=== PATIENT | female | born 1960 | race Caucasian/White ===

== ENCOUNTER 2023-04-17 14:00 | Emergency (ER) | payer MEDICARE, SELFPAY ==
--- NOTE | ~2023-04-17 | CT_ITS ---
EXAMINATION: CT HEAD WITHOUT CONTRAST CLINICAL INFORMATION: Headache. COMPARISON: None. TECHNIQUE: Contiguous axial imaging was performed from the skullbase to vertex without intravenous administration of contrast. This CT examination was performed using dose optimization techniques as appropriate, variously including the following: *Automated exposure control *Adjustment of mA and/or kV according to patient size (this includes techniques or standardized protocols for targeted exams where dose is matched to indication/reason for exam; i.e. extremities or head) *Use of iterative reconstruction technique DLP: 511 mGy-cm. FINDINGS: There is no evidence of acute intracranial hemorrhage or territorial infarction. No abnormal mass effect or midline shift is seen. Estes to white matter differentiation is well preserved. No extra-axial fluid collections are identified. Mild to moderate generalized brain parenchymal volume loss noted with chronic white matter microangiopathy. The osseous structures and soft tissues are normal. The mastoid air cells are well aerated. There is dependent mucosal thickening posteriorly in the right sphenoid sinus. A small 0.8 cm lobulated soft tissue focus also dependently in the right sphenoid sinus is nonspecific, reflecting mucosal thickening, a small retention cyst, or possibly a small mycetoma. CT/CT head/brain wo IV con IMPRESSION: No acute intracranial hemorrhage or territorial infarction. [id number] chronic white matter microangiopathy and generalized brain parenchymal volume loss. Mild mucosal thickening in the dependent right sphenoid sinus.
[2023-04-17 14:48] VITALS: BP 102/70; PULSE 80; RESP 14; TEMP 36.2; O2SAT 100; BMI 19.8
[2023-04-17 15:47] LABS: Appearance Urine Clear; Color Urine Yellow; Glucose Urine UA Negative (Negative); Leukocyte Esterase Urine Negative (Negative); Nitrite Urine Negative (Negative); Specific Gravity - Urine <= 1.005 (1.005-1.025); Urine Blood Negative (Negative); Urine Ketones Trace mg/dL (Negative); Urine Protein Negative (Neg-Trace)
--- NOTE | 2023-04-17 15:52 | ED_ITS ---
HPI - General Adult General Chief complaint: Psychiatric Symptoms Stated complaint: crisis si Time Seen by Provider: 04/17/23 14:18 History of Present Illness HPI narrative: Patient is a 63-year-old female presents today with writing a note to family stating that she loves them, she will miss her family and the fracture of her friends. Patient has been having hallucinations thinking that the daughter is going to evict her from her house. Patient was sent to the ED for further evaluation. He denies any recreational drug use. No fever no chills. No coughing or congestion or upper respiratory symptoms. No diaphoresis. Related Data Home Medications Medication Instructions Recorded Confirmed No Known Home Meds 04/17/23 04/17/23 Allergies Allergy/AdvReac Type Severity Reaction Status Date / Time Sulfa (Sulfonamide Allergy Intermediate Rash Verified 04/17/23 15:30 Antibiotics) Review of Systems 2 Review of Systems: No fever no chills no chest pain Yes all other systems are reviewed and are negative [facility] Past Medical History Attestation statement: The following information was validated with the patient. Source: unable to obtain Social History Social History Alcohol intake: current Alcohol intake frequency: a few times a week Alcohol type: wine and hard liquor Smoked in Last 30 Days: No Use of substances other than those prescribed or required for medical reasons: No Advance Directives: No Advance Directives Information Provided: No Physical Exam ED Vital Signs: Vital Signs - 24 hr 04/17/23 14:48 Temperature 97.2 F Pulse Rate 80 Respiratory Rate 14 Blood Pressure 102/70 Pulse Oximetry 100 Oxygen Delivery Method Room Air BMI result Body Mass Index 19.8 Appearance: Alert. Oriented X3. No acute distress. Eyes: Pupils equal, round and reactive to light. ENT: Pharynx normal. Neck: Normal inspection. Neck supple. No lymph nodes noted. No crepitus CVS: Normal heart rate and rhythm. Pulses normal. Normal S1 and S2 Respiratory: No respiratory distress. Breath sounds normal. No Wheezing. No rales Abdomen: Soft and nontender. No rigidity. No distention. good BS x4 Skin: Skin warm and dry. Normal skin color. Normal skin turgor. Extremities: No lower extremity edema. Neurovascular intact to all extremities. No Lacerations. No Rash Neuro: Oriented X 3. No motor deficit. No sensory deficit. Moving all extermities. No slurred speech Medical Decision Making Medical Decision Making MDM Narrative: I reviewed patient's CT scan of the head which was grossly negative for any acute evidence of bleeding. Patient's TSH is normal there is no evidence for hypo or hyperthyroid patient's electrolytes were normal. Tox screen was negative no evidence for substance abuse. Care team evaluated the patient. Novi patient safe to be evaluated on an outpatient basis. Family feel comfortable. Patient is in stable condition. Will discharge patient home Differential Diagnosis Differential Diagnoses: The differential diagnosis associated with the presentation includes Hypothyroid, intracranial bleed, intracranial mass, electrolyte disturbance, hypoglycemia Admission/Observation Consideration of admission/observation: Escalation of care including admission/observation considered Consult Healthcare Provider Management of the patient was discussed with: Security Representative (Care team) Lab Data [facility] Lab Attestation statement: I reviewed the patient's lab results. 04/17/23 16:10 04/17/23 16:10 Labs: Lab Results 04/17/23 04/17/23 Range/Units 15:40 16:10 WBC 6.6 (4.8-10.8) X10*3/uL RBC 4.19 L (4.20-5.50) X10*6/uL Hgb 12.9 (12.0-16.0) g/dl Hct 37.8 (37.0-47.0) % MCV 90.2 (80.0-98.0) fL MCH 30.8 (27.0-33.0) pg MCHC 34.1 (31.0-35.0) g/dl RDW 12.7 (11.0-16.0) % Plt Count 299 (160-400) X10*3/uL MPV 10.0 (9.4-12.3) fL Immature Gran % (Auto) 0.3 (0.0-0.4) % Neut % (Auto) 64.5 (45-73) % Lymph % (Auto) 24.3 (20-40) % [place] % (Auto) 9.2 (2-11) % Eos % (Auto) 0.6 (0-4) % Baso % (Auto) 1.1 (0-2) % Lymph # (Auto) 1.6 (1.2-4.9) X10*3/uL [place] # (Auto) 0.6 (0.1-1.2) X10*3/uL Eos # (Auto) 0.0 (0.0-0.4) X10*3/uL Baso # (Auto) 0.1 (0.0-0.2) X10*3/uL Abs Immat Gran (auto) 0.02 (0.00-0.03) X10*3/uL Absolute Neuts (auto) 4.3 (2.0-8.3) x10*3/uL Absolute Nucleated RBC 0.000 (0.0-0.012) X10*3/uL Nucleated RBC % (auto) 0.0 (0.0-0.2) /100WBC Sodium 140 (135-145) mmol/L Potassium 3.9 (3.3-5.1) mmol/L Chloride 104 (96-108) mmol/L Carbon Dioxide 26 (22-29) mmol/L Anion Gap 14 (12-20) BUN 8 L (9-16) mg/dL Creatinine 0.78 (0.5-1.4) mg/dL Estim Creat Clear Calc 56.9 Estimated GFR > 60 Random Glucose 100 (60-115) mg/dL Calcium 9.7 (8.4-10.2) mg/dL Total Bilirubin 0.5 (0.0-1.0) mg/dL AST 22 (5-31) U/L ALT 15 (0-31) U/L Alkaline Phosphatase 84 (39-117) U/L Total Protein 7.4 (6.5-8.0) g/dL Albumin 4.5 (3.5-5.0) g/dL TSH 0.74 (0.32-4.0) uIU/mL Urine Color Yellow Urine Appearance Clear Urine pH 6.0 (5.0-9.0) Ur Specific [place] <= 1.005 (1.005-1.025) Urine Protein Negative (Neg-Trace) mg/dL Urine Glucose (UA) Negative (Negative) mg/dL Urine Ketones Trace (Negative) mg/dL Urine Blood Negative (Negative) Urine Nitrite Negative (Negative) Ur Leukocyte Esterase Negative (Negative) Urine Opiates Screen Not Detected (Not Detect) Urine Fentanyl Screen Not Detected (Not Detect) Ur Barbiturates Screen Not Detected (Not Detect) Ur Phencyclidine Scrn Not Detected (Not Detect) Ur Amphetamines Screen Not Detected (Not Detect) U Benzodiazepines Scrn Not Detected (Not Detect) Urine Cocaine Screen Not Detected (Not Detect) U Marijuana (THC) Screen Not Detected (Not Detect) Independent Interpretation I performed an independent interpretation of an: CT Scan (CT head was grossly negative for any acute evidence of bleeding) Radiology Impression Discussion of test interpretation with radiology: I have reviewed the radiologist's reading. Independent Historian Clinical information obtained from an independent historian. History obtained from or confirmed by: Spouse Patient's spouse Social Determinants Patient?s care significantly limited by Social Determinants of Health including: Other Social Determinant of Health Discharge Plan Discharge Clinical Impression: Depression Patient Disposition: Home, Self-Care Instructions: Depression (ED) Prescriptions: No Action No Known Home Meds Referrals: Fidel Stephenson MD [Primary Care Provider] - (Please follow-up as per care team) Interventions: Haines-Suicide Risk Severity Scale Last Done: 04/17/23 18:19
[2023-04-17 15:54] LABS: Amphetamine Screen Urine Not Detected (Not Detect); Barbiturates, Urine Not Detected (Not Detect); Benzodiazepines Screen Urine Not Detected (Not Detect); Cannabinoid Screen Urine Not Detected (Not Detect); Cocaine Screen Urine Not Detected (Not Detect); Fentanyl, urine Not Detected (Not Detect); Opiate Screen Urine Not Detected (Not Detect); Phencyclidine Screen Urine Not Detected (Not Detect)
[2023-04-17 16:17] LABS: MANUAL DIFF FLAG NO
[2023-04-17 16:18] LABS: Basophils Absolute Auto 0.1 X10*3/uL (0.0-0.2); Basophils Percent Auto 1.1 % (0-2); Eosinophils Percent Auto 0.6 % (0-4); Hematocrit 37.8 % (37.0-47.0); Hemoglobin 12.9 g/dl (12.0-16.0); Imm Gran Abs Auto 0.02 X10*3/uL (0.00-0.03); Imm Gran Pct Auto 0.3 % (0.0-0.4); Lymphocytes Absolute Auto 1.6 X10*3/uL (1.2-4.9); Lymphocytes Percent Auto 24.3 % (20-40); Mean Corpuscular HGB Conc 34.1 g/dl (31.0-35.0); Mean Corpuscular Hemoglobin 30.8 pg (27.0-33.0); Mean Corpuscular Volume 90.2 fL (80.0-98.0); Monocytes Absolute Auto 0.6 X10*3/uL (0.1-1.2); Monocytes Percent Auto 9.2 % (2-11); Neutrophils Absolute Auto 4.3 x10*3/uL (2.0-8.3); Neutrophils Percent Auto 64.5 % (45-73); Platelet Count 299 X10*3/uL (160-400); Red Blood Count 4.19 X10*6/uL (4.20-5.50); Red Cell Distribution Width 12.7 % (11.0-16.0); White Blood Count 6.6 X10*3/uL (4.8-10.8)
[2023-04-17 16:31] LABS: Alanine Aminotransferase 15 U/L (0-31); Albumin Level 4.5 g/dL (3.5-5.0); Alkaline Phosphatase 84 U/L (39-117); Anion Gap 14 (12-20); Aspartate Amino Transferase 22 U/L (5-31); Bilirubin Total 0.5 mg/dL (0.0-1.0); Blood Urea Nitrogen 8 mg/dL (9-16); Calcium 9.7 mg/dL (8.4-10.2); Carbon Dioxide 26 mmol/L (22-29); Chloride 104 mmol/L (96-108); Creatinine Clr Calc Pharmacy 56.9; Estimated Glomerular Filt Rate > 60; Glucose Random 100 mg/dL (60-115); Potassium 3.9 mmol/L (3.3-5.1); Sodium 140 mmol/L (135-145); Total Protein 7.4 g/dL (6.5-8.0)
[2023-04-17 16:52] LABS: TSH reflex Free T4 0.74 uIU/mL (0.32-4.0)
--- NOTE | 2023-04-18 20:00 | MHC.CARE ---
RAD team completed referral to [facility]. RAD team to follow up tomorrow, 04/19/23.
--- NOTE | 2023-04-19 10:08 | MHC.CARE ---
Rad Team spoke with Maliha Cantor at [facility] who stated she will be reaching out to Ashleigh today to schedule a start date.
== END 2023-04-17 19:28 | disposition home or self-care (01) ==
PROVIDERS: Emergency Provider Emergency Medicine Emergency Medical Services; PCP Internal Medicine
DX: F32.A Depression, unspecified (principal); R51.9 Headache, unspecified
CPT/HCPCS: 36415; 70450; 80053; 80307; 81003; 84443; 85025; 99284; S9485

== ENCOUNTER → 2023-06-16 11:30 | Outpatient (BNV) | payer MEDICARE, OTHER, SELFPAY | PROVIDERS: Visit Provider Psychiatry & Neurology Psychiatry | DX: F39 Unspecified mood [affective] disorder (principal); F03.90 Unspecified dementia, unspecified severity, without behavioral disturbance, psychotic disturbance, mood disturbance, and anxiety; F41.8 Other specified anxiety disorders | CPT/HCPCS: 90792; 99213; 99214 ==

== ENCOUNTER 2023-06-21 09:45 | Outpatient (RCR) | payer MEDICARE, SELFPAY ==
[2023-06-08 10:41] VITALS: BMI 20.2
[2023-06-08 10:42] VITALS: BP 111/70; PULSE 78; TEMP 37.6
--- NOTE | 2023-06-08 11:22 | PC.ADMIT ---
Patient is a 63 year old female who was referred to [facility] by the crisis team . Per Integrative assessment patient presented to the ER on 04/17/23 advised by her PCP d/t increased depression, anxiety, and memory loss. 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 According to her she was making statements that did not make sense lately. She reportedly wrote a note saying things like she does not want to feel like she is in a nursing home anymore (in her mind). Having nightmares that she believes are real and being fixed on the idea that her daughter is going to natasha her which is not true. Patient lives with her only. Patient has a long history of depression and anxiety. Patient reportedly recently retired however when asked patient when she retired she is unable to state. Patient is alert and oriented x3. She does not remember why she is at [facility] and has not recollection why she went to the ED. She reports short term memory issues and has history of TBI. She stated her intermediate memory is much better. Limited fund of information. Patient denied SI stated her father of suicide and would never do that to her adult children. She was given a copy of her safety plan if needed. Medications reconciled with patient. She reports taking medications as prescribed.
--- NOTE | 2023-06-08 15:24 | HO.PHP ---
Client's case has been opened and reviewed in treatment team.
--- NOTE | 2023-06-08 22:26 | P.HPPSP_ITS ---
HPI Date of Service: 06/08/23 Chief Complaint: depression,anxiety Sources of Information: patient interviewed, chart reviewed and crisis/core team assessment reviewed HPI Narrative: Patient is a 63 yo female with history of traumatic brain injury with memory loss She reports being concussed and as a result lives with short term memory loss at baseline. She was unable to identify the reason she was referred to PHP but shared some current stressors relating to family dynamics. Specifically she reports a complicated relationship with her daughter who recently came out as keane. She also relays some paranoia around her mother being evil and trying to sabotage her relationship with her daughter. She is trying to come between us and use her against me . Aside from progesteron, she is not on any medication and has no prior psychaitric treatment history. Past Psychiatric History: No IPLOC, PHP or detox admissions No SA or SIBs No MH treaters No psychiatric medications or med trials Regular check ups with PCP and is reportedly in good health aside from memory issues related to TBI [facility] Medical History (Updated 06/20/23 @ 11:46 by Linda Meraz MD) Borderline hyperlipidemia TBI (traumatic brain injury) Surgical History (Updated 06/08/23 @ 10:39 by Parris Wylie RN) H/O lumpectomy Hx of appendectomy Social History: , lives at [facility] Has 2 adult children Substance History: Denies any hx of alcohol or illicit drug use Trauma History: Denies Diagnostics Vital Signs (24Hr): Vital Signs - 24 hr 06/08/23 10:42 Temperature 99.6 F Pulse Rate 78 Blood Pressure 111/70 BMI result Body Mass Index 20.2 Meds/Allergies Meds Home Medications ?Medication ?Instructions ?Recorded ?Confirmed ?Type progesterone micronized 100 mg 100 mg PO DAILY 06/08/23 06/08/23 History capsule Allergies Allergies Allergy/AdvReac Type Severity Reaction Status Date / Time Sulfa (Sulfonamide Allergy Intermediate Rash Verified 04/17/23 15:30 Antibiotics) Mental Status Exam Mental Status Exam Narrative: Alert, oriented, in no acute distress. Calm, cooperative, engaged. No psychomotor agitation or neurovegetative retardation. Eye contact maintained. Mood okay angry about situation with mother., affect anxious,full range, reactive, mood congruent. Speech normal. Thought process linear, coherent, logical. Thought content related to stressors, TBI-related challenges, denies any helplessness, hopelessness or SI.? No aggressive ideation or HI. No paranoia or delusional content elicited. No evidence of psychosis. Cognition impairment noted in working memory, short term memory and episodic jail memory impairment. Insight fair/limited and judgment fair but adequate. Assessment & Plan Assessment & Plan (1) Mood disorder: Status: Acute Code(s): F39 - Unspecified mood [affective] disorder Assessment and Plan: with behavioral disturbance (2) Major neurocognitive disorder: Status: Acute Code(s): F03.90 - Unspecified dementia, unspecified severity, without behavioral disturbance, psychotic disturbance, mood disturbance, and anxiety Assessment and Plan: Major neurocognitive disorder due to traumatic brain injury (3) Other specified anxiety disorders: Status: Acute Code(s): F41.8 - Other specified anxiety disorders Plan Admit to [facility] VS reviewed: abrefile; BP 111/70; 78 bpm Continue regular medications for now Will plan to assess for MCI/ MoCA once patient has settled in Routine lab work ordered UDS, EKG as indicated MassPat reviewed Continue to monitor as per protocol Patient educated on: diagnosis and medication risk/benefits Informed Consent: understands Reason for continued partial hosp. stay Substantial Risk for: med/psych decompensation Certification I certify that partial hospital treatment is medically necessary due to the symptoms and problems resulting from the patient's mental illness and the failure to treat the patient at the partial hospital level of care would likely result in the patient requiring inpatient psychiatric care which could not be prevented at a less intensive level of care. Time Spent With Patient Time: Total time managing care of this patient today _60___ minutes.
--- NOTE | 2023-06-16 21:57 | HO.PHPPROGNO ---
Subjective Subjective Date of Service: 06/16/23 Reason For Visit: depression,anxiety Interim History: Patient seen for follow-up. Presents as bright, relaxed. No longer distressed as she was during admission last week. She reports she is feeling okay both physically and mentally. I'm physically fit, I walk everyday and I eat well, I get good sleep . Says she also takes good care of her health because it also helps her care for her TBI. She notes she typically is not a medication person and prefers eating well and exercise to manage anxiety or depression. She again shares that she takes only vitamin D, ashwagandha, and progesterone. She reports her mood as I feel good right now . She can not recall when she last felt depressed. She admits she usually can not hold onto that kind of information. 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 She shares details about her and children, prefacing this with I probably told you this already . She admits she can not recall any of our conversation last week nor actually meeting with me, however she says she does recognize my face and the artwork that is hanging on the wall in my office, which she takes as cues that we have met before . She has difficulty articulating what has been helpful about being in the program, other than I feel that it is a supportive place and says it was probably a good idea I came in, because I feel good . She does not recall if there were any events that brought her into PHP. She says she does not recall being upset last week. She also does not recall telling me about her complicated relationship with her mother or that her daughter came out as keane last week, but says that makes sense that she would have shared those things with me, acknowledging that both those things are true, and says she is in a different place...of acceptance with her daughter. I probably had a hard time because I wasn't expecting it . She denies any hopelessness or SI. She denies any feelings of anger or irritability or HI. She denies any AH or VH. She says she can not recall having had any of these issues. She says she used to have issues with depression many many years ago from prior to her head injury. She says she probably has some depressive feelings sometimes, but suspects she moves on more quickly now because I don't really remember much day to day, I probably just move on from it . She currently feels she is at her baseline, and says she is generally a [id number]-[id number] person most of the time . She denies any helplessness, hopelessness or SI. She expresses much gratitude to her who is her rock and is very supportive and patient . She relays being habituated to checking her watch for the time and date (she was unable to even guess at the day/date/month or year) without looking at her watch. She also is in the habit of checking her phone where she keeps a daily schedule that helps prompt her to where she is or what she is doing. She was agreeable to taking a cognitive test today (MoCA) since she feels she is at her baseline, and I thought it might be helpful to have a baseline score, for comparisons in the future, which she thought was reasonable. MoCA score today 18/30 without checking watch (when allowed to check watch would have scored 22/30) Visuospatial/executive - 3/5 (unable to follow pattern on dot connection or draw a cube) Naming - 3/3 Memory - (registered 5 items after 3 trials) Attention - 2/2, 1/1, 1/3 (unable to subtract 7s beyond 93) Language - 1/2 (on repeat sentance) , 1/1 (on fluency) Abstraction - 2/2 Delayed Recall - 4/5 (recalled 3/5 and 1 with category cue) Orientation - 0/6 (was unable to recall day/date/month or year (which prompted her to ask if she could check her watch to answer the question), city as in [place]...[place], maybe? and place as a medical facility . Medication Compliance: Yes Side effects from medications: No Attending Groups: Yes Review of Systems Acute medical concerns: No Review of Systems Review of Systems Yes all other systems are reviewed and are negative Mental Status Exam Mental Status Exam Narrative: Alert, oriented, in no acute distress. Calm, cooperative, engaged. No psychomotor agitation or neurovegetative retardation. Eye contact maintained. Mood good, affect anxious, bright, mood congruent. Speech normal. Thought process linear, coherent, logical. Thought content related to stressors, TBI-related challenges, denies any helplessness, hopelessness or SI.? No aggressive ideation or HI. No paranoia or delusional content elicited. No evidence of psychosis. Cognition impairment noted in working memory, short term memory and episodic fdc memory impairment. Insight fair/limited and judgment fair but adequate. Diagnostics Vital Signs (24Hr): BMI result Body Mass Index 20.2 Assessment & Plan Assessment & Plan (1) Major neurocognitive disorder: Status: Acute Code(s): F03.90 - Unspecified dementia, unspecified severity, without behavioral disturbance, psychotic disturbance, mood disturbance, and anxiety Assessment and Plan: Major neurocognitive disorder due to traumatic brain injury (2) Mood disorder: Status: Acute Code(s): F39 - Unspecified mood [affective] disorder Assessment and Plan: TBI-related mood dysregulation with behavioral disturbance r/o adjustment disorder vs cyclothymia vs MDD, rec, mod (3) Other specified anxiety disorders: Status: Acute Code(s): F41.8 - Other specified anxiety disorders Plan Continue regular medications for now Touched upon history of prior treatment (for mood, anxiety, cognition) however patient declined to engage and says she is not interested in medication options Routine lab work reviewed from 04/17/23 - including CBC, metabolic panel, TFTs, UDS UDS, EKG as indicated Tarpley Cognitive Assessment - patient scored 18/30. Sent to scanning to chart MassPat reviewed Continue to monitor Patient educated on: diagnosis and medication risk/benefits Informed Consent: understands Reason for contiued partial hosp. stay Substantial Risk for: inability to function, rapid decompensation and med/psych decompensation Certification I certify that partial hospital treatment is medically necessary due to the symptoms and problems resulting from the patient's mental illness and the failure to treat the patient at the partial hospital level of care would likely result in the patient requiring inpatient psychiatric care which could not be prevented at a less intensive level of care. Total time managing care of this patient today __45__ minutes. Discharge Plan Discharge Attending provider: Linda Meraz Medications: Continued progesterone micronized 100 mg capsule 100 mg PO DAILY Print Language: Luxembourgish
--- NOTE | 2023-06-19 14:16 | PC.NURSE ---
Ashleigh participated in group discussion about social supports and connecting to the community. Discussion and information provided on local resources for mental health in the area such as [employer]. Ashleigh discussed reaching out to friends and going to [place] to visit.
--- NOTE | 2023-06-20 06:16 | HO.PHP ---
Late entry 06/19/23: [facility] staff member contacted Radha from [facility] to explore when Ashleigh's OP therapy and med appointment is. PHP staff member left a voicemail and is awaiting a call back.
--- NOTE | 2023-06-20 11:44 | HO.PHPPROGNO ---
Subjective Subjective Date of Service: 06/20/23 Reason For Visit: depression,anxiety Interim History: Patient seen for follow-up, anticipating discharge at the end of program today.? Doing great . Patient reports being at baseline. She says she is typically a happy go milagros person, and whatever issues she had coming to the program she surmises she is no longer dealing with these. I inform her that she had shared on admission having a complicated relationship with her mother and this came to the forefront in the context of family stressors and being confronted with her daughter 'coming out' to the family. Niels knodded and says that this makes sense, and adds that she and her daughter are doing better now and says I just have just got caught off guard she also adds that her mother has a habit of putting me down and probably just said some things to me that was really unhelpful at the time and I probably didnt take it well . She says that this is the silver lining of her brain injury, I easily forgot and move on from the negative things . She says she has been able to hold on to the important things that happen over the past years since her TBI, mostly good memories that involve the people I love, my family . She recalls going to her son's graduation among other selected memories that she has been able to convert from short term to supervisor intermediates memory. I inquire if she was able to guage whether this program was helpful to her, given her memory issues. She admits that day to day she could not retain any details of the conversations and interactions from the days before; at best people look familiar, but adds that she will likely soon forget everyone. She shares that there was one thing she has been able to retain for the duration of her time here, Being here I came to realize that I am not alone in my problems, everyone suffers in some way or other and that is something I have held onto since being here, so I dont think I will forget that . She denies any acute issues or concerns at this time. Medication compliant, medications well-tolerated. Denies any adverse effects.? Mood is stable.? Denies any hopelessness or SI. Denies thoughts of harming self or others at this time. Denies any aggressive ideation or HI. Denies any paranoia or AH or VH. Sleep, appetite, energy stable. Review of Systems Review of Systems Yes all other systems are reviewed and are negative Mental Status Exam Mental Status Exam Narrative: Alert, oriented, in no acute distress. Calm, cooperative, engaged. No psychomotor agitation or neurovegetative retardation. Eye contact maintained. Mood eutymic, affect bright, anxious, otherwise mood congruent. Speech normal. Thought process linear, coherent, logical. Thought content related to stressors, TBI-related challenges, denies any helplessness, hopelessness or SI.? No aggressive ideation or HI. No paranoia or delusional content elicited. No evidence of psychosis. Cognition impairment noted in working memory, short term memory and episodic long-term memory impairment. Insight fair/limited and judgment fair but adequate. Diagnostics Vital Signs (24Hr): BMI result Body Mass Index 20.2 Assessment & Plan Assessment & Plan (1) Major neurocognitive disorder: Status: Acute Code(s): F03.90 - Unspecified dementia, unspecified severity, without behavioral disturbance, psychotic disturbance, mood disturbance, and anxiety Assessment and Plan: Major neurocognitive disorder due to traumatic brain injury (2) Adjustment disorder with mixed disturbance of emotions and conduct in remission: Status: Acute Code(s): F43.25 - Adjustment disorder with mixed disturbance of emotions and conduct (3) Other specified anxiety disorders: Status: Acute Code(s): F41.8 - Other specified anxiety disorders Plan Discharge from [facility] Continue regular medications - progesterone and vitamins patient was not interested in medication options for anxiety, mood symptoms resolved over her time at [facility] I suggest that (with her ) she may want to look into hyperbaric oxygen therapy to see if this might be of potential benefit to cognition/memory given her TBI hx [place] Cognitive Assessment - patient scored 18/30. Scanned to chart Defer further treatment to OP provider Patient educated on: diagnosis, medication risk/benefits and other (HBOT) Informed Consent: understands Reason for contiued partial hosp. stay Substantial Risk for: stable for discharge Certification I certify that partial hospital treatment is medically necessary due to the symptoms and problems resulting from the patient's mental illness and the failure to treat the patient at the partial hospital level of care would likely result in the patient requiring inpatient psychiatric care which could not be prevented at a less intensive level of care. Total time managing care of this patient today _30___ minutes. Discharge Plan Discharge Attending provider: Linda Meraz Additional Instructions: Ashleigh has an intake appointment with [facility] through [facility] scheduled on July 05, 2023 at 2:30 PM at [address] [place] [id number]. This intake is to review a placement for an OP therapist, med provider, and the enrichment center. Medications: Continued progesterone micronized 100 mg capsule 100 mg PO DAILY Stand Alone Forms: Patient Portal Discharge page Print Language: Welsh
--- NOTE | 2023-06-20 12:22 | HO.PHP ---
PHP staff member received a voice message from Radha, from [facility], who noted that they did not receive her intake information and would need us to refax. PHP staff member was receptive and asked if they could contact me to schedule the appointment since Ashleigh suffers from short term memory loss. They disclosed that they can't and need to speak with her directly. PHP staff member was receptive.
--- NOTE | 2023-06-20 12:24 | HO.PHP ---
PHP staff member sat with Ashleigh and returned a miss call from Clifford, through [facility]. PHP staff member assisted Ashleigh in the phone call and helped answer questions. Clifford disclosed that they would be contacting her back in about 15 minutes with an appointment. PHP staff member and Ashleigh waited 15 minutes, in which she never received a call back. Ashleigh is continuing to wait for the phone call.
--- NOTE | 2023-06-20 13:44 | HO.PHP ---
Ashleigh provided the [facility] staff member with the appointment date and time for OP therapy, med management, and the enrichment center through [facility]. [facility] staff member contacted Ashleigh's , Deric, to relay the appointment date and time. Deric asked the [facility] staff member to email him the information since he is driving. [facility] staff member was receptive and emailed him the information discussed on the phone with appointment date and time of July 05, 2023 at 2:30 PM.
== END 2023-06-21 23:59 | disposition home or self-care (01) ==
LOC: HO.PHPA 09:45
PROVIDERS: Visit Provider Psychiatry & Neurology Psychiatry
DX: F39 Unspecified mood [affective] disorder (principal); F41.8 Other specified anxiety disorders; F03.90 Unspecified dementia, unspecified severity, without behavioral disturbance, psychotic disturbance, mood disturbance, and anxiety; Z87.820 Personal history of traumatic brain injury
CPT/HCPCS: 90791; 90853